=== PATIENT | female | born 1955 | race Caucasian/White ===

== ENCOUNTER 2017-05-15 10:32 | Outpatient (CLI) | payer BC ==
[2017-05-15 11:18] LABS: CREATININE 0.7 mg/dL (0.4-1.0)
[2017-05-15] MEDS ORDERED: IOPAMIDOL-300 50 ML VIAL PO ONE (13:10)
[2017-05-15] MEDS ORDERED: IOPAMIDOL-300 100 ML VIAL IVP ONE (13:10)
--- NOTE | 2017-05-15 16:07 | CT Report ---
CT OF THE ABDOMEN AND PELVIS WITH CONTRAST: 05/15/2017 CLINICAL INDICATION: Chronic diarrhea, abdominal pain, nausea. TECHNIQUE: Axial CT images of the abdomen and pelvis were obtained with 100 mL of Isovue-300 intraven ously as well as oral contrast. FINDINGS: Limited evaluation of the lung bases is unremarkable. ABDOMEN: The liver, spleen, pancreas, kidneys and adrenal glands are unremarkable. The gallbladder is not dilated. No bowel dilatation, free gas, or free fluid is present. No abdominal adenopathy is pre sent. PELVIS: The appendix is seen in the right lower quadrant, and is normal in caliber. Sigmoid diverticu losis is present, without CT evidence of diverticulitis. No pelvic adenopathy or free fluid is presen t. The osseous structures demonstrate degenerative changes. IMPRESSION: DIVERTICULOSIS, STABLE. NO EVIDENT ETIOLOGY FOR PATIENT'S SYMPTOMS. NO SIGNIFICANT INTER JACQUIE CHANGE FROM 08/09/2013. In accordance with CT protocol optimization, one or more of the following dose reduction techniques w ere utilized for this exam: automated exposure control, adjustment of mA and/or KV based on patient size, or use of iterative reconstructive technique. JOB #: [id number] EXT JOB #:[id number]
== END 2017-05-15 10:33 | disposition home or self-care (01) ==
LOC: LAB 10:32
PROVIDERS: ATTEND Physician Assistant
DX: K52.9 Noninfective gastroenteritis and colitis, unspecified (principal); R11.0 Nausea; R10.9 Unspecified abdominal pain; K57.90 Diverticulosis of intestine, part unspecified, without perforation or abscess without bleeding
CPT/HCPCS: 36415; 74177; 82565; Q9967

== ENCOUNTER 2017-09-25 10:26 | Outpatient (CLI) | payer OTHER ==
--- NOTE | 2017-09-29 12:45 | Mammography Report ---
DIGITAL SCREENING MAMMOGRAM: 09/26/2017 CLINICAL INDICATION: A 62-year-old with family history of breast cancer for screening. COMPARISON: 09/2016, 09/2015, 09/2014, 07/2013, 04/2012, 03/2011, 03/2010. TECHNIQUE: Routine CC and MLO projections as well as bilateral laterally exaggerated craniocaudal views were obtained of the breasts. The breasts demonstrate scattered fibroglandular densities bilaterally. Coarse and punctate, typically benign calcifications are present. No suspicious masses , clustered microcalcifications, or regions of architectural distortion are identified. IMPRESSION: Benign findings. RECOMMENDATIONS: Routine annual screening unless otherwise clinically indicated. BIRADS category 2 benign findings. STANDARD QUALIFYING STATEMENTS 1. This examination was reviewed with the aid of Computed-Aided Detection (CAD). 2. A negative or benign imaging report should not delay biopsy if clinically suspicious findings are present. Consider surgical consultation if warranted. More than 5% of cancers are not identified by imaging. 3. Dense breasts may obscure an underlying neoplasm. TD: 09/26/2017 18:19 ROBIN
== END 2017-09-25 10:27 | disposition home or self-care (01) ==
LOC: DI.S 10:26
PROVIDERS: ATTEND Physician Assistant
DX: Z12.31 Encounter for screening mammogram for malignant neoplasm of breast (principal)
CPT/HCPCS: 77067

== ENCOUNTER 2019-06-17 11:03 | Outpatient (CLI) | payer MEDICARE, OTHER ==
--- NOTE | 2019-06-17 17:29 | Mammography Report ---
Reason: SCREENING MAMMO Procedure Date: 06/17/2019 Accession Number: [id number] / [id number] Procedure: MGS - Screening Mammo Dig Bilat CPT Code: FULL RESULT: EXAM: Screening Mammo Dig Bilat DATE: 06/17/2019 11:54 AM CLINICAL HISTORY: Routine screening TECHNIQUE: (B) - Bilateral CC and MLO views were obtained. COMPARISON: 09/25/2017, 10/06/2016, 09/21/2015, 09/15/2014, 07/30/2013, 07/28/2013 PARENCHYMAL PATTERN: (A) - The breasts demonstrate scattered fibroglandular densities bilaterally. FINDINGS: No significant interval change. There are no suspicious masses, calcifications, or areas of distortion. IMPRESSION: Negative examination. BI-RADS category 1. RECOMMENDATION: (ANNUAL) - Recommend routine annual screening mammography. BI-RADS CATEGORY: (1) - Negative. STANDARD QUALIFYING STATEMENTS: 1. This examination was not reviewed with the aid of Computer-Aided Detection (CAD). 2. A negative or benign imaging report should not preclude biopsy if clinically suspicious findings are present. 3. Dense breasts may obscure an underlying neoplasm. 4. This examination was reviewed without the aid of 3D breast imaging (tomosynthesis).
--- NOTE | 2019-06-19 04:35 | XRAY Report ---
Reason: PAIN IN RIGHT HAND Procedure Date: 06/17/2019 Accession Number: [id number] / [id number] Procedure: XRS - Hand 3 View RT CPT Code: FULL RESULT: EXAM: RIGHT HAND RADIOGRAPHY EXAM DATE: 06/17/2019 11:20 AM. CLINICAL HISTORY: PAIN IN RIGHT HAND. COMPARISON: HAND 3 VIEW LT 06/17/2019 11:30 AM. TECHNIQUE: 3 views. FINDINGS: Bones: Nonaggressive lucent lesion in the proximal aspect of the middle phalanx of the middle finger. The remaining bone architecture and alignment appear intact. Joints: Mild joint degeneration with marginal osteophyte formation and joint space narrowing greatest at the index finger MCP and DIP. Soft Tissues: Normal. No soft tissue swelling. IMPRESSION: 1. Mild joint degeneration greatest at the index finger. 2. 4 mm nonaggressive lucent lesion in the middle finger middle phalanx which may reflect a bone cyst, intraosseous lipoma, or nonossifying fibroma. RADIA
--- NOTE | 2019-06-19 04:38 | XRAY Report ---
Reason: PAIN OF LEFT HAND Procedure Date: 06/17/2019 Accession Number: [id number] / [id number] Procedure: XRS - Hand 3 View LT CPT Code: FULL RESULT: EXAM: LEFT HAND RADIOGRAPHY EXAM DATE: 06/17/2019 11:20 AM. CLINICAL HISTORY: PAIN OF LEFT HAND. COMPARISON: None. TECHNIQUE: 3 views. FINDINGS: Bones: Normal. No fractures or bone lesions. Joints: Multifocal joint degeneration greatest at the index through ring finger DIP joints and index finger interphalangeal joint with joint space narrowing and marginal osteophyte formation. Soft Tissues: Normal. No soft tissue swelling. IMPRESSION: DIP and IP joint degeneration. RADIA
== END 2019-06-17 11:04 | disposition home or self-care (01) ==
LOC: DI.S 11:03
PROVIDERS: ATTEND Physician Assistant
DX: Z12.31 Encounter for screening mammogram for malignant neoplasm of breast (principal); M19.041 Primary osteoarthritis, right hand; M89.9 Disorder of bone, unspecified; M19.042 Primary osteoarthritis, left hand
CPT/HCPCS: 77067

== ENCOUNTER 2022-09-23 09:18 | Outpatient (CLI) | payer MEDICARE, OTHER ==
[2022-09-23 15:19] LABS: BASOPHILS # (AUTO) 0.1 10^3/uL (0.0-0.1); BASOPHILS % (AUTO) 1.3 %; EOSINOPHILS # (AUTO) 0.2 10^3/uL (0.0-0.7); HCT - HEMATOCRIT 42.9 % (37.0-47.0); LYMPHOCYTES # (AUTO) 3.1 10^3/uL (1.5-3.5); MEAN CORPUSCULAR HEMOGLOBIN 30.1 pg (27.0-31.0); MEAN CORPUSCULAR HGB CONC 32.6 g/dL (32.0-36.0); MEAN CORPUSCULAR VOLUME 92.3 fL (81.0-99.0); MEAN PLATELET VOLUME 9.6 fL (7.9-10.8); MONOCYTES # (AUTO) 0.4 10^3/uL (0.0-1.0); MONOCYTES % (AUTO) 6.1 %; NEUTROPHILS # (AUTO) 2.6 10^3/uL (1.5-6.6); NEUTROPHILS % (AUTO) 40.3 %; PLT - PLATELET COUNT 243 10^3/uL (130-450); RED BLOOD COUNT 4.65 10^6/uL (4.20-5.40); RED CELL DISTRIBUTION WIDTH 13.9 % (12.0-15.0); WHITE BLOOD COUNT 6.4 x10^3/uL (4.8-10.8)
[2022-09-23 15:38] LABS: ALBUMIN 4.5 g/dL (3.2-5.5); ALBUMIN/GLOBULIN RATIO 1.6 (1.0-2.2); ALKALINE PHOSPHATASE 42 IU/L (42-121); ALT ALANINE AMINOTRANSFERASE 24 IU/L (10-60); AST ASPARTATE AMINOTRANSFERASE 26 IU/L (10-42); BILIRUBIN,TOTAL 0.6 mg/dL (0.2-1.0); BUN - BLOOD UREA NITROGEN 17 mg/dL (6-20); CALCIUM 9.7 mg/dL (8.5-10.3); CARBON DIOXIDE - CO2 30 mmol/L (21-32); CHLORIDE 100 mmol/L (101-111); CHOL/HDL RATIO 3.3 (<4.4); CHOLESTEROL 288 mg/dL; CREATININE 0.7 mg/dL (0.4-1.0); CRP HIGH SENSITIVITY 0.9 mg/L; GFR - MDRD 83 (>89); GLUCOSE 96 mg/dL (70-100); HDL CHOLESTEROL 87 mg/dL; LDL CHOLESTEROL,CALCULATED 186 mg/dL; LDL/HDL RATIO 2.1 (<4.4); SODIUM 140 mmol/L (135-145); TOTAL PROTEIN 7.4 g/dL (6.7-8.2); TRIGLYCERIDES 76 mg/dL; VLDL CHOLESTEROL 15 mg/dL
[2022-09-23 15:45] LABS: THYROID STIMULATING HORMONE 3.72 uIU/mL (0.34-5.60)
[2022-09-23 15:46] LABS: FREE T4 (FREE THYROXINE) 0.76 ng/dL (0.58-1.64)
[2022-09-23 15:52] LABS: FERRITIN 93.7 ng/mL (11.0-306.8)
[2022-09-23 15:53] LABS: PROLACTIN 8.15 ng/mL
[2022-09-23 17:12] LABS: BILIRUBIN,URINE NEGATIVE (NEGATIVE); GLUCOSE, URINE (UA) NEGATIVE (NEGATIVE); KETONES,URINE (UA) NEGATIVE (NEGATIVE); LEUKOCYTE ESTERASE, URINE NEGATIVE (NEGATIVE); NITRITE,URINE NEGATIVE (NEGATIVE); OCCULT BLOOD,URINE NEGATIVE (NEGATIVE); PH,URINE 6.5 PH (5.0-7.5); PROTEIN,URINE NEGATIVE (NEGATIVE); UROBILINOGEN,URINE 0.2 (NORMAL) E.U./dL (NORMAL)
[2022-09-23 17:14] LABS: CLARITY,URINE CLEAR (CLEAR)
== END 2022-09-23 09:19 | disposition home or self-care (01) ==
LOC: LAB.S 09:18
PROVIDERS: ATTEND Family Medicine
DX: E03.9 Hypothyroidism, unspecified (principal); R53.83 Other fatigue; K21.9 Gastro-esophageal reflux disease without esophagitis; E78.5 Hyperlipidemia, unspecified; K57.90 Diverticulosis of intestine, part unspecified, without perforation or abscess without bleeding; D35.2 Benign neoplasm of pituitary gland; M13.0 Polyarthritis, unspecified; K52.9 Noninfective gastroenteritis and colitis, unspecified; E56.9 Vitamin deficiency, unspecified; Z79.899 Other long term (current) drug therapy; R41.89 Other symptoms and signs involving cognitive functions and awareness; M79.7 Fibromyalgia; N39.0 Urinary tract infection, site not specified
CPT/HCPCS: 36415; 80053; 80061; 81001; 81003; 81599; 82306; 82607; 82728; 82746; 83721; 83735; 84146; 84439; 84443; 84480; 85025; 85651; 86141

== ENCOUNTER 2022-12-28 10:01 | Outpatient (CLI) | payer MEDICARE, OTHER ==
[2022-12-28 10:13] LABS: BASOPHILS # (AUTO) 0.1 10^3/uL (0.0-0.1); BASOPHILS % (AUTO) 1.3 %; EOSINOPHILS # (AUTO) 0.2 10^3/uL (0.0-0.7); EOSINOPHILS % (AUTO) 4.9 %; HCT - HEMATOCRIT 41.5 % (37.0-47.0); HGB - HEMOGLOBIN 14.1 g/dL (12.0-16.0); LYMPHOCYTES # (AUTO) 2.6 10^3/uL (1.5-3.5); LYMPHOCYTES % (AUTO) 54.4 %; MEAN CORPUSCULAR HEMOGLOBIN 31.3 pg (27.0-31.0); MEAN CORPUSCULAR VOLUME 92.2 fL (81.0-99.0); MEAN PLATELET VOLUME 9.1 fL (7.9-10.8); MONOCYTES # (AUTO) 0.3 10^3/uL (0.0-1.0); MONOCYTES % (AUTO) 6.6 %; NEUTROPHILS # (AUTO) 1.5 10^3/uL (1.5-6.6); NEUTROPHILS % (AUTO) 32.6 %; PLT - PLATELET COUNT 220 10^3/uL (130-450); WHITE BLOOD COUNT 4.7 x10^3/uL (4.8-10.8)
[2022-12-28 10:23] LABS: ALBUMIN 4.4 g/dL (3.2-5.5); ALBUMIN/GLOBULIN RATIO 1.5 (1.0-2.2); BILIRUBIN,TOTAL 0.8 mg/dL (0.2-1.0); CALCIUM 9.7 mg/dL (8.5-10.3); CREATININE 0.7 mg/dL (0.4-1.0); POTASSIUM 4.2 mmol/L (3.5-5.0); TOTAL PROTEIN 7.4 g/dL (6.7-8.2)
== END 2022-12-28 10:02 | disposition home or self-care (01) ==
LOC: LAB 10:01
PROVIDERS: ATTEND Family Medicine
DX: Z01.818 Encounter for other preprocedural examination (principal); M13.0 Polyarthritis, unspecified; M79.7 Fibromyalgia; E78.5 Hyperlipidemia, unspecified; Z79.899 Other long term (current) drug therapy
CPT/HCPCS: 36415; 80053; 85025; 93005

== ENCOUNTER 2023-07-17 09:22 | Outpatient (CLI) | payer MEDICARE, OTHER ==
[2023-07-17 14:52] LABS: BASOPHILS # (AUTO) 0.1 10^3/uL (0.0-0.1); EOSINOPHILS # (AUTO) 0.2 10^3/uL (0.0-0.7); EOSINOPHILS % (AUTO) 4.2 %; HCT - HEMATOCRIT 39.6 % (37.0-47.0); HGB - HEMOGLOBIN 13.3 g/dL (12.0-16.0); LYMPHOCYTES # (AUTO) 2.3 10^3/uL (1.5-3.5); LYMPHOCYTES % (AUTO) 45.1 %; MEAN CORPUSCULAR HEMOGLOBIN 31.1 pg (27.0-31.0); MEAN CORPUSCULAR HGB CONC 33.6 g/dL (32.0-36.0); MEAN CORPUSCULAR VOLUME 92.5 fL (81.0-99.0); MEAN PLATELET VOLUME 9.3 fL (7.9-10.8); MONOCYTES # (AUTO) 0.4 10^3/uL (0.0-1.0); MONOCYTES % (AUTO) 7.1 %; NEUTROPHILS # (AUTO) 2.1 10^3/uL (1.5-6.6); NEUTROPHILS % (AUTO) 42.2 %; PLT - PLATELET COUNT 248 10^3/uL (130-450); RED BLOOD COUNT 4.28 10^6/uL (4.20-5.40); RED CELL DISTRIBUTION WIDTH 14.4 % (12.0-15.0); WHITE BLOOD COUNT 5.1 x10^3/uL (4.8-10.8)
[2023-07-17 15:12] LABS: ALBUMIN 4.3 g/dL (3.2-5.5); ALBUMIN/GLOBULIN RATIO 1.7 (1.0-2.2); ALKALINE PHOSPHATASE 62 IU/L (42-121); ALT ALANINE AMINOTRANSFERASE 12 IU/L (10-60); AST ASPARTATE AMINOTRANSFERASE 19 IU/L (10-42); BILIRUBIN,TOTAL 0.5 mg/dL (0.2-1.0); BUN - BLOOD UREA NITROGEN 22 mg/dL (6-20); CALCIUM 9.8 mg/dL (8.5-10.3); CARBON DIOXIDE - CO2 33 mmol/L (21-32); CHLORIDE 104 mmol/L (101-111); CHOL/HDL RATIO 2.7 (<4.4); CHOLESTEROL 255 mg/dL; CREATININE 0.6 mg/dL (0.6-1.3); GFR - MDRD 99 (>89); GLUCOSE 99 mg/dL (74-104); HDL CHOLESTEROL 93 mg/dL; LDL CHOLESTEROL,CALCULATED 137 mg/dL; POTASSIUM 4.1 mmol/L (3.5-4.5); SODIUM 141 mmol/L (135-145); TOTAL PROTEIN 6.8 g/dL (6.4-8.9); TRIGLYCERIDES 126 mg/dL (48-352); VLDL CHOLESTEROL 25 mg/dL
[2023-07-17 15:13] LABS: LDL/HDL RATIO 1.5 (<4.4)
[2023-07-17 15:24] LABS: THYROID STIMULATING HORMONE 2.25 uIU/mL (0.34-5.60)
[2023-07-17 15:30] LABS: PROLACTIN 8.77 ng/mL
== END 2023-07-17 09:23 | disposition home or self-care (01) ==
LOC: LAB.S 09:22
PROVIDERS: ATTEND Internal Medicine
DX: Z00.00 Encounter for general adult medical examination without abnormal findings (principal); Z13.220 Encounter for screening for lipoid disorders; D35.2 Benign neoplasm of pituitary gland
CPT/HCPCS: 36415; 80053; 80061; 83721; 84146; 84443; 85025

== ENCOUNTER 2023-08-19 07:49 | Outpatient (CLI) | payer MEDICARE, OTHER ==
[~2023-08-19 07:49] MED LIST: GADOTERATE MEGLUMINE 10 MMOL/20 ML VIAL ONE
[2023-08-19 09:02] LABS: CREATININE 0.7 mg/dL (0.6-1.3)
[2023-08-19] MEDS ORDERED: GADOTERATE MEGLUMINE 10 MMOL/20 ML VIAL IVP ONE (09:48)
--- NOTE | 2023-08-24 13:37 | MRI Report ---
PROCEDURE: BRAIN W/WO INDICATIONS: BILATERAL VISION IMPAIRMENT CONTRAST: CLARISCAN 13.2 ml TECHNIQUE: Noncontrast axial T1 spin echo, axial T2 fast spin echo, sagittal and axial FLAIR, coronal T2 fast sp in echo, axial gradient echo, axial diffusion and ADC through the brain. After the administration of contrast, axial and coronal T1 spin echo with fat saturation through the brain. COMPARISON: None. FINDINGS: Image quality: Excellent. CSF spaces: Basal cisterns are patent. No extra-axial fluid collections. Ventricles are normal in size and shape. Brain: No midline shift. No intracranial bleeds or masses. No abnormal intracranial enhancement. There is cerebral volume loss for age. There is periventricular white matter chronic small vessel is chemic change. The brainstem appears normal. Diffusion-weighted images demonstrate no acute ischemi c insults. No chronic ischemic insults. Normal intravascular flow voids are present. Skull and face: Calvarial marrow is normal in signal. Orbits appear normal. Sinuses: Sinuses and mastoids appear clear. IMPRESSION: 1.No cause for patient's symptoms identified. 2.No acute intracranial abnormalities. 3.Mild global volume loss and chronic microvascular ischemic changes. Reviewed by: Gino Saenz MD on 08/24/2023 1:35 PM PST Approved by: Gino Saenz MD on 08/24/2023 1:35 PM PST Station ID: [id number]
== END 2023-08-19 07:50 | disposition home or self-care (01) ==
LOC: LAB 07:49
PROVIDERS: ATTEND Internal Medicine
DX: H54.3 Unqualified visual loss, both eyes (principal); G31.89 Other specified degenerative diseases of nervous system; I67.82 Cerebral ischemia
CPT/HCPCS: 36415; 70553; 82565; A9575

== ENCOUNTER 2023-09-28 13:29 | Outpatient (CLI) | payer MEDICARE, OTHER ==
--- NOTE | 2023-09-28 17:13 | MRI Report ---
PROCEDURE: CERVICAL SPINE WO INDICATIONS: CERVICALGIA TECHNIQUE: Multiplanar multisequential MRI of the cervical spine was obtained without contrast. COMPARISON: 08/29/2009 FINDINGS: Alignment and Curvature: There is normal bony alignment. Bone Marrow: C5-6, C6-7, C7-T1 discectomy and fusion with anterior plate and screw instrumentation. Spinal Cord: Visualized spinal cord has normal size and signal. No cerebellar tonsillar herniation. Focal artifact noted on the axial images in the upper cervical spine related to hardware Paraspinal Soft Tissues: No paravertebral masses. Prevertebral soft tissues are normal in thickness . C2-C3: Normal in appearance. C3-C4: Normal in appearance. C4-C5: Disc spaces maintained. Small posterior disc osteophyte complex results in mild central steno sis. No foraminal stenosis C5-C6: Discectomy and fusion. No central or foraminal stenosis C6-C7: Discectomy and fusion with good graft incorporation. Hardware creates artifact obscuring the anterior central canal, although, no obvious central or foraminal stenosis. C7-T1: Discectomy and fusion. No central or foraminal stenosis IMPRESSION: C5-T1 discectomy and fusion with anterior plate and screw hardware. No evidence of complication. Degenerative disc disease and arthropathy at C4-5 results in mild central stenosis. Reviewed by: Andrews Barker MD on 09/28/2023 4:12 PM [place] Approved by: Andrews Barker MD on 09/28/2023 4:12 PM [place] Station ID: [id number]
== END 2023-09-28 13:30 | disposition home or self-care (01) ==
LOC: DI 13:29
PROVIDERS: ATTEND Internal Medicine
DX: R51.9 Headache, unspecified (principal); M99.71 Connective tissue and disc stenosis of intervertebral foramina of cervical region; Z98.1 Arthrodesis status; M47.812 Spondylosis without myelopathy or radiculopathy, cervical region; M50.321 Other cervical disc degeneration at C4-C5 level; M48.02 Spinal stenosis, cervical region

== ENCOUNTER 2023-10-10 10:27 | Outpatient (CLI) | payer MEDICARE, OTHER ==
[2023-10-10 17:13] LABS: PROLACTIN 7.15 ng/mL
[2023-10-10 20:55] LABS: ESTIMATED AVERAGE GLUCOSE 105 mg/dL (70-100); HEMOGLOBIN A1c% 5.3 % (4.27-6.07)
[2023-10-11 15:08] LABS: OSMOLALITY 294 mOsmol/kg (280-301); OSMOLALITY URINE 566 mOsmol/kg (.)
== END 2023-10-10 10:28 | disposition home or self-care (01) ==
LOC: LAB.S 10:27
PROVIDERS: ATTEND Internal Medicine
DX: D35.2 Benign neoplasm of pituitary gland (principal); E03.9 Hypothyroidism, unspecified; R63.1 Polydipsia
CPT/HCPCS: 36415; 81599; 82024; 82533; 82670; 83001; 83002; 83036; 83930; 83935; 84146; 84403; 84439; 84481

== ENCOUNTER 2024-04-22 12:22 | Outpatient (CLI) | payer MEDICARE, OTHER ==
--- NOTE | 2024-04-22 19:00 | XRAY Report ---
PROCEDURE: Tib/Fib RT INDICATIONS: RT LEG PAIN TECHNIQUE: 2 views of the tibia and fibula were acquired. COMPARISON: None. FINDINGS: Bones: No fractures or dislocations. Degenerative arthritis at the knee. No suspicious bony lesions . Soft tissues: No suspicious soft tissue calcifications or masses. IMPRESSION: No acute bony abnormality. Degenerative arthritis at the knee. Reviewed by: Domo Cruz MD on 04/22/2024 6:58 PM PDT Approved by: Domo Cruz MD on 04/22/2024 6:58 PM PDT Station ID: [id number]
== END 2024-04-22 12:23 | disposition home or self-care (01) ==
LOC: DI.S 12:22
PROVIDERS: ATTEND Internal Medicine
DX: M17.11 Unilateral primary osteoarthritis, right knee (principal)

== ENCOUNTER 2024-05-02 14:26 | Outpatient (CLI) | payer MEDICARE, OTHER ==
[2024-05-02 14:45] LABS: BASOPHILS # (AUTO) 0.1 10^3/uL (0.0-0.1); BASOPHILS % (AUTO) 0.8 %; EOSINOPHILS # (AUTO) 0.3 10^3/uL (0.0-0.7); EOSINOPHILS % (AUTO) 3.8 %; HCT - HEMATOCRIT 34.5 % (37.0-47.0); HGB - HEMOGLOBIN 10.7 g/dL (12.0-16.0); LYMPHOCYTES # (AUTO) 2.7 10^3/uL (1.5-3.5); LYMPHOCYTES % (AUTO) 37.3 %; MEAN CORPUSCULAR HEMOGLOBIN 26.6 pg (27.0-31.0); MEAN CORPUSCULAR VOLUME 85.6 fL (81.0-99.0); MEAN PLATELET VOLUME 8.9 fL (7.9-10.8); MONOCYTES # (AUTO) 0.6 10^3/uL (0.0-1.0); MONOCYTES % (AUTO) 8.4 %; NEUTROPHILS # (AUTO) 3.5 10^3/uL (1.5-6.6); NEUTROPHILS % (AUTO) 49.4 %; PLT - PLATELET COUNT 255 10^3/uL (130-450); RED BLOOD COUNT 4.03 10^6/uL (4.20-5.40); RED CELL DISTRIBUTION WIDTH 13.1 % (12.0-15.0); WHITE BLOOD COUNT 7.1 x10^3/uL (4.8-10.8)
[2024-05-02 15:08] LABS: ALBUMIN 4.4 g/dL (3.2-5.5); ALBUMIN/GLOBULIN RATIO 1.7 (1.0-2.2); BILIRUBIN,TOTAL 0.4 mg/dL (0.2-1.0); CALCIUM 9.9 mg/dL (8.5-10.3); CREATININE 0.7 mg/dL (0.6-1.3); POTASSIUM 4.1 mmol/L (3.5-4.5)
[2024-05-02 15:20] LABS: THYROID STIMULATING HORMONE 2.1 uIU/mL (0.34-5.60)
== END 2024-05-02 14:27 | disposition home or self-care (01) ==
LOC: LAB 14:26
DX: R19.7 Diarrhea, unspecified (principal); Z87.11 Personal history of peptic ulcer disease; Z86.010 Personal history of colon polyps
CPT/HCPCS: 36415; 80053; 82784; 84443; 85025; 86231; 86364

== ENCOUNTER 2024-05-03 10:51 | Outpatient (CLI) | payer MEDICARE, OTHER ==
[2024-05-04 05:13] LABS: ADENOVIRUS F 40/41 Not Detected (Not Detected); ASTROVIRUS Not Detected (Not Detected); C DIFFICILE TOXIN A/B Not Detected (Not Detected); CAMPYLOBACTER Not Detected (Not Detected); CRYPTOSPORIDIUM Not Detected (Not Detected); CYCLOSPORA CAYETANENSIS Not Detected (Not Detected); ENTAMOEBA HISTOLYTICA Not Detected (Not Detected); ENTEROAGGREGATIVE E COLI Not Detected (Not Detected); ENTEROPATHOGENIC E COLI Not Detected (Not Detected); ENTEROTOXIGENIC E COLI Not Detected (Not Detected); GIARDIA LAMBLIA Not Detected (Not Detected); NOROVIRUS GI/GII Not Detected (Not Detected); PLESIOMONAS SHIGELLOIDES Not Detected (Not Detected); ROTAVIRUS A Not Detected (Not Detected); SALMONELLA Not Detected (Not Detected); SAPOVIRUS Not Detected (Not Detected); SHIGA-TOXIN-PRODUCING E COLI Not Detected (Not Detected); SHIGELLA/ENTEROINVASIVE E COLI Not Detected (Not Detected); VIBRIO Not Detected (Not Detected); VIBRIO CHOLERAE Not Detected (Not Detected); YERSINIA ENTEROCOLITICA Not Detected (Not Detected)
== END 2024-05-03 10:52 | disposition home or self-care (01) ==
LOC: LAB.R 10:51
PROVIDERS: ATTEND Physician Assistant Medical
DX: R19.7 Diarrhea, unspecified (principal); Z87.11 Personal history of peptic ulcer disease; Z86.010 Personal history of colon polyps
CPT/HCPCS: 81599; 87507

== ENCOUNTER 2024-05-14 11:18 | Outpatient (CLI) | payer MEDICARE, OTHER ==
[2024-05-14 11:36] LABS: BASOPHILS # (AUTO) 0.1 10^3/uL (0.0-0.1); BASOPHILS % (AUTO) 1.2 %; EOSINOPHILS # (AUTO) 0.3 10^3/uL (0.0-0.7); EOSINOPHILS % (AUTO) 4.7 %; HCT - HEMATOCRIT 36.7 % (37.0-47.0); HGB - HEMOGLOBIN 11.7 g/dL (12.0-16.0); LYMPHOCYTES # (AUTO) 2.1 10^3/uL (1.5-3.5); LYMPHOCYTES % (AUTO) 36.7 %; MEAN CORPUSCULAR HEMOGLOBIN 27.2 pg (27.0-31.0); MEAN CORPUSCULAR HGB CONC 31.9 g/dL (32.0-36.0); MEAN CORPUSCULAR VOLUME 85.3 fL (81.0-99.0); MEAN PLATELET VOLUME 9.2 fL (7.9-10.8); MONOCYTES # (AUTO) 0.4 10^3/uL (0.0-1.0); MONOCYTES % (AUTO) 6.1 %; NEUTROPHILS % (AUTO) 51.1 %; PLT - PLATELET COUNT 267 10^3/uL (130-450); RED CELL DISTRIBUTION WIDTH 13.8 % (12.0-15.0); WHITE BLOOD COUNT 5.8 x10^3/uL (4.8-10.8)
[2024-05-14 11:49] LABS: % IRON SATURATION 8 % (20-50); CRP - C-REACTIVE PROTEIN < 0.5 mg/dL (<0.5); IRON 32 ug/dL (50-212); TOTAL IRON BINDING CAPACITY 420 ug/dL (250-450); TRANSFERRIN 300 mg/dL (203-362)
[2024-05-14 12:12] LABS: FERRITIN 6.5 ng/mL (11.0-306.8)
[2024-05-14 12:51] LABS: ESTIMATED AVERAGE GLUCOSE 111 mg/dL (70-100); HEMOGLOBIN A1c% 5.5 % (4.27-6.07)
== END 2024-05-14 11:19 | disposition home or self-care (01) ==
LOC: LAB 11:18
PROVIDERS: ATTEND Internal Medicine
DX: D64.9 Anemia, unspecified (principal); R63.1 Polydipsia; M99.71 Connective tissue and disc stenosis of intervertebral foramina of cervical region; M14.88 Arthropathies in other specified diseases classified elsewhere, vertebrae
CPT/HCPCS: 36415; 82607; 82728; 82746; 83036; 83540; 84466; 85025; 85651; 86140

== ENCOUNTER 2024-05-27 09:11 | Outpatient (CLI) | payer MEDICARE, OTHER ==
[2024-05-27 15:17] LABS: BASOPHILS # (AUTO) 0.1 10^3/uL (0.0-0.1); BASOPHILS % (AUTO) 1.3 %; EOSINOPHILS # (AUTO) 0.3 10^3/uL (0.0-0.7); EOSINOPHILS % (AUTO) 5.6 %; HCT - HEMATOCRIT 38.3 % (37.0-47.0); HGB - HEMOGLOBIN 11.8 g/dL (12.0-16.0); LYMPHOCYTES % (AUTO) 42.5 %; MEAN CORPUSCULAR HEMOGLOBIN 26.9 pg (27.0-31.0); MEAN CORPUSCULAR HGB CONC 30.8 g/dL (32.0-36.0); MEAN CORPUSCULAR VOLUME 87.4 fL (81.0-99.0); MONOCYTES # (AUTO) 0.3 10^3/uL (0.0-1.0); MONOCYTES % (AUTO) 7.2 %; NEUTROPHILS % (AUTO) 42.7 %; PLT - PLATELET COUNT 257 10^3/uL (130-450); RED BLOOD COUNT 4.38 10^6/uL (4.20-5.40); RED CELL DISTRIBUTION WIDTH 16.3 % (12.0-15.0); WHITE BLOOD COUNT 4.6 x10^3/uL (4.8-10.8)
[2024-05-27 15:49] LABS: FERRITIN 540.2 ng/mL (11.0-306.8)
== END 2024-05-27 09:12 | disposition home or self-care (01) ==
LOC: LAB.S 09:11
PROVIDERS: ATTEND Internal Medicine
DX: D64.9 Anemia, unspecified (principal); R79.89 Other specified abnormal findings of blood chemistry; M62.838 Other muscle spasm
CPT/HCPCS: 36415; 82728; 83540; 83735; 84466; 85025

== ENCOUNTER 2024-06-17 09:15 | Outpatient (CLI) | payer MEDICARE, OTHER ==
[2024-06-17 14:59] LABS: BASOPHILS # (AUTO) 0.1 10^3/uL (0.0-0.1); BASOPHILS % (AUTO) 1.1 %; EOSINOPHILS # (AUTO) 0.2 10^3/uL (0.0-0.7); EOSINOPHILS % (AUTO) 4.3 %; HCT - HEMATOCRIT 38.5 % (37.0-47.0); HGB - HEMOGLOBIN 12.3 g/dL (12.0-16.0); LYMPHOCYTES # (AUTO) 1.8 10^3/uL (1.5-3.5); LYMPHOCYTES % (AUTO) 39.8 %; MEAN CORPUSCULAR HEMOGLOBIN 27.7 pg (27.0-31.0); MEAN CORPUSCULAR HGB CONC 31.9 g/dL (32.0-36.0); MEAN CORPUSCULAR VOLUME 86.7 fL (81.0-99.0); MEAN PLATELET VOLUME 9.8 fL (7.9-10.8); MONOCYTES # (AUTO) 0.4 10^3/uL (0.0-1.0); MONOCYTES % (AUTO) 8.3 %; NEUTROPHILS % (AUTO) 45.8 %; PLT - PLATELET COUNT 241 10^3/uL (130-450); RED BLOOD COUNT 4.44 10^6/uL (4.20-5.40); RED CELL DISTRIBUTION WIDTH 18.6 % (12.0-15.0); WHITE BLOOD COUNT 4.5 x10^3/uL (4.8-10.8)
[2024-06-17 16:20] LABS: FERRITIN 268.6 ng/mL (11.0-306.8)
== END 2024-06-17 09:16 | disposition home or self-care (01) ==
LOC: LAB.S 09:15
PROVIDERS: ATTEND Internal Medicine
DX: R79.89 Other specified abnormal findings of blood chemistry (principal)
CPT/HCPCS: 36415; 82728; 83540; 84466; 85025

== ENCOUNTER 2024-07-05 08:34 | Outpatient (CLI) | payer MEDICARE, OTHER ==
[2024-07-05 14:51] LABS: BASOPHILS # (AUTO) 0.1 10^3/uL (0.0-0.1); BASOPHILS % (AUTO) 1.4 %; EOSINOPHILS # (AUTO) 0.2 10^3/uL (0.0-0.7); EOSINOPHILS % (AUTO) 3.9 %; HCT - HEMATOCRIT 39.7 % (37.0-47.0); LYMPHOCYTES # (AUTO) 2.1 10^3/uL (1.5-3.5); LYMPHOCYTES % (AUTO) 43.1 %; MEAN CORPUSCULAR HEMOGLOBIN 28.8 pg (27.0-31.0); MEAN CORPUSCULAR HGB CONC 32.7 g/dL (32.0-36.0); MEAN PLATELET VOLUME 9.7 fL (7.9-10.8); MONOCYTES # (AUTO) 0.4 10^3/uL (0.0-1.0); MONOCYTES % (AUTO) 7.7 %; NEUTROPHILS # (AUTO) 2.1 10^3/uL (1.5-6.6); NEUTROPHILS % (AUTO) 43.5 %; PLT - PLATELET COUNT 235 10^3/uL (130-450); RED BLOOD COUNT 4.51 10^6/uL (4.20-5.40); RED CELL DISTRIBUTION WIDTH 19.7 % (12.0-15.0); RETICULOCYTE COUNT % (AUTO) 1.34 % (0.5-2.3); WHITE BLOOD COUNT 4.8 x10^3/uL (4.8-10.8)
[2024-07-05 16:08] LABS: FERRITIN 166.1 ng/mL (11.0-306.8)
== END 2024-07-05 08:35 | disposition home or self-care (01) ==
LOC: LAB.S 08:34
PROVIDERS: ATTEND Internal Medicine
DX: D64.9 Anemia, unspecified (principal); R79.89 Other specified abnormal findings of blood chemistry
CPT/HCPCS: 36415; 82728; 83540; 84466; 85025; 85045